=== PATIENT | female | born 1960 | race Caucasian/White ===

== ENCOUNTER → 2016-12-25 | Outpatient (CLI) | payer OTHER ==
--- NOTE | 2016-12-25 20:23 | DRAGON STRESS TEST REPORT ---
EXERCISE TREADMILL STRESS TEST USING SINGLE PHOTON EMMISION COMPUTERIZED TOMOGRAPHIC. DATE OF PROCEDURE: December 25, 2016 INDICATION : Coronary artery disease RESTING EKG: Sinus rhythm without any baseline ST segment changes STRESS EKG: No significant changes noted with treadmill stress testing REASON FOR TERMINATION: Protocol. PROCEDURE REPORT: Baseline heart rate 64 beats per minute with blood pressure of 120/79. Patient was exercised on a standard Raymon protocol. Patient exercised for a total of 9 minutes. Patient achieved a met level of 10.10. Peak heart rate obtained during the exercise was 1 60 bpm. Peak blood pressure obtained during exercise was 172/61. Exercise was stopped because of fatigue and tiredness. Electrocardiogram obtained during exercise and at peak exercise and in recovery did not show any significant ST-T wave changes. NUCLEAR DATA: At rest the patient was given 10.20 millicuries of technetium 99 sestamibi injected intravenously. As per protocol rest gated SPECT images were obtained. Subsequently the patient was given intravenous stress dose of 29.5 millicuries of technetium 99 sestamibi was injected intravenously at peak exercise. Patient continued to exercise for 1-2 additional minutes. As per protocol stress gated images were obtained. NUCLEAR INTERPRETATION: Both raw and processed data were used for interpretation. Visual, qualitative, computer-generated quantitative data was used. There was good myocardial uptake of technetium compound. Motion artifact and soft tissue attenuations were noted. Increased visceral uptake was noted. No definitive areas of transient perfusion defect noted. No definitive areas of fixed perfusion defect or scars noted. EKG gated imaging showed LV EF at 61 %, rest and stress gated EF similar visually. T. I D. ratio was 0.98. Lung heart ratio noted to be within normal limits 0.40. No significant extracardiac and abnormal radiotracer activities were noted. RV free wall uptake was noted to be []. IMPRESSION: Also refer to comments under nuclear interpretation. Also test results needs to be interpreted in the context of pretest probability. 1. There is no definitive scintigraphic evidence of exercise-induced myocardial ischemia at adequate double product 2. There is no definitive scintigraphic evidence of myocardial infarction/scar. 3. EKG gated imaging shows left ejection fraction of approximately 61 %. 4. Clinical correlation requested as occasionally single vessel disease could be missed. 5. Patient had good exercise tolerance having walked 9 minutes on standard Raymon protocol. RECOMMENDATIONS: Aggressive risk factor modification, medical therapy. Clinical correlation with echocardiogram derived ejection fraction. Inability to exercise by itself can lead to increased cardiovascular event risks. Consider cardiology consultation and or follow-up if clinically indicated. I AM AVAILABLE FOR CARDIOLOGY CONSULTATION AND FOLLOWUP IF REQUESTED BY PMD Pio Oliveros M.D., [employer], Board certified in cardiovascular diseases, Nuclear cardiology, Echocardiography Cardiac CT and cardiac MRI Ph. [phone] [facility]
== END ==
LOC: RAD 07:16
PROVIDERS: ATTEND Internal Medicine
DX: I25.10 Atherosclerotic heart disease of native coronary artery without angina pectoris (principal)
CPT/HCPCS: 93017; 78452; A9500; Q9969